=== PATIENT | female | born 1955 | race Caucasian/White ===

== ENCOUNTER 2020-03-05 13:44 | Emergency (ER) | payer MEDICARE, OTHER ==
[~2020-03-05] VITALS: Ht 177.8 cm; Wt 59.0 kg
--- NOTE | 2020-03-05 13:53 | Emergency Department Note ---
History of Present Illnes History of Present Illness History of Present Illness This is a 65 year old female that 2 days ago had a mechanical fall. Patient was walking, tripped and struck the right side of her ribs. No LOC, no headache, denies any pain right now. Patient has been ambulatory since then. Patient with moderate to severe pain, right ribs. . Arrival Mode: Car Onset (how long ago): day(s) (2) Location: R ribs Quality: ache Radiation: Reports non-radiation Severity: severe Onset quality: sudden Duration (how long): day(s) (2) Timing of current episode: constant Progression: worsening Chronicity: new Context: Denies recent illness, Denies recent surgery, Denies recent immobilization Relieving factors: none Exacerbating factors: movement Associated symptoms: Reports denies other symptoms Treatments prior to arrival: none Past Medical/Family History Physician Review I have reviewed the patient's past medical and family history. Any updates have been documented here. Review of Systems Review of Systems Constitutional: Reports no symptoms EENTM: Reports no symptoms Cardiovascular: Reports no symptoms Respiratory: Reports no symptoms Gastrointestinal: Reports no symptoms Genitourinary: Reports no symptoms Musculoskeletal: Reports no symptoms Integumentary: Reports no symptoms Neurological: Reports no symptoms Psychological: Reports no symptoms Endocrine: Reports no symptoms Hematological/Lymphatic: Reports no symptoms Physical Exam Related Data Allergies: Coded Allergies: Sulfa (Sulfonamide Antibiotics) (Verified Allergy, Mild, 03/05/20) Physical Exam CONSTITUTIONAL Constitutional: Present well-developed, Present well-nourished HENT HENT: Present normocephalic, Present atraumatic, Present oropharynx clear/moist, Present nose normal HENT L/R: Present left ext ear normal, Present right ext ear normal EYES Eyes: Reports PERRL, Reports conjunctivae normal NECK Neck: Present ROM normal PULMONARY Pulmonary: Present effort normal, Present breath sounds normal, Present chest tenderness (tenderness to palpation right lateral chest wall NO crepitus) CARDIOVASCULAR Cardiovascular: Present regular rhythm, Present heart sounds normal, Present capillary refill normal, Present normal rate GASTROINTESTINAL Abdominal: Present soft, Present nontender, Present bowel sounds normal GENITOURINARY Genitourinary: Present exam deferred SKIN Skin: Present warm, Present dry MUSCULOSKELETAL Musculoskeletal: Present ROM normal NEUROLOGICAL Neurological: Present alert, Present oriented x 3, Present no gross motor or sensory deficits PSYCHOLOGICAL Psychological: Present mood/affect normal, Present judgement normal Assessment & Plan Medical Decision Making MDM Patient is a 65-year-old that suffered a mechanical fall 2 days ago here with right rib pain. Patient with pain worse with movement, no crepitus on exam. We will image and treat symptomatically in the meantime. Denies any chest pain, no shortness of breath. Patient is a COPD patient, sat 100% no respiratory distress. Reassessment Reassessment X-ray did not show any rib fractures, we'll treat as contusion, checked at [place] pharmacy website, no recent narcotics. Assessment & Plan Final Impression: (1) Fall (2) Contusion of rib on right side Depart Disposition: HOME, SELF-[facility] Meds Active Scripts Acetaminophen/Codeine* (TYLENOL # 3*) 1 Ea Tab, 1 TAB PO Q4H PRN for pain, #10 T AB Prov:TRICIA DE LA CRUZ MD 03/05/20 TRICIA DE LA CRUZ MD Mar 05, 2020 13:53
[2020-03-05] MEDS ORDERED: ACETAMINOPHEN/CODEINE 300MG - 30MG TAB PO ONE (15:00)
--- NOTE | 2020-03-05 15:43 | Diagnostic Imaging Report ---
X-ray right RIBS with AP chest History: Fall. Findings: No acute fracture, lytic or blastic lesions of the right ribs. Old healed fracture of the left posterior rib. Likely old healed fracture of the right surgical neck of the humerus. Status post left shoulder arthroplasty. Status post anterior C-spine fusion at lower cervical level. Lungs are unremarkable. Cardiomediastinal and diaphragmatic silhouettes unremarkable upper abdomen unremarkable. Incidental findings: Vascular calcification. Impression: No right rib fractures. No acute cardiopulmonary disease. Signed by: Brent Tesfaye MD on 03/05/2020 3:40 PM
--- OUTSIDE RECORDS SUMMARY | 2020-03-05 15:55 | XMS REPORT | Continuity of Care Document ---
Author Author [facility] t Organization [facility] Address [address] [place] [address] Phone Unavailable Care Team Providers Care Dust Box Tender Name Role Phone Cristal DE LA CRUZ Unavailable Tu Fonseca Problems This patient has no known problems. Allergies, Adverse Reactions, Alerts This patient has no known allergies or adverse reactions. Medications This patient has no known medications. Procedures This patient has no known procedures. Encounters Start Date/Time End Date/Time Encounter Type Admission Type [facility] Care Department Encounter ID Source 2019-10-05 12:17:59 2019-10-05 13:32:02 Office Visit Tu Hillman [facility] [id number] Results Test Description Test Time Test Comments Results Result Comments Source CYNDEE Mccullough/CXR 2020-03-05 15:37:00 [facility] KARYN LYLE : 1955 Sex: F [facility] [address] [address] Patient Name: KARYN LYLE MR #: [id number] : 1955 Age/Sex: 65/F Req #: [id number] Adm Physician: Ordered by: TRICIA DE LA CRUZ MD Report #: [id number] Location: ER Room/Bed: Procedure: [id number] DX/RIBS UNILAT W/CXR Exam Date: 03/05/20 Exam Time: 1425 REPORT STATUS: Signed X-ray right RIBS with AP chest History: Fall. Findings: No acute fracture, lytic or blastic lesions of the right ribs. Old healed fracture of the left posterior rib. Likely old healed fracture of the right surgical neck of the humerus. Status post left shoulder arthroplasty. Status post anterior C-spine fusion at lower cervical level. Lungs are unremarkable. Cardiomediastinal and diaphragmatic silhouettes unremarkable upper abdomen unremarkable. Incidental findings: Vascular calcification. Impression: No right rib fractures. No acute cardiopulmonary disease. Signed by: Pilar Krishnan MD on 03/05/2020 3:40 PM Dictated By: PILAR KRISHNAN MD 39 Transcribed By: YENNIFER on 03/05/201539 COPY TO: TRICIA DE LA CRUZ MD
[2020-03-05] MEDS ORDERED: KETOROLAC TROMETHAMINE 30 MG/ML VIAL IM STA (16:15)
[2020-03-05] MEDS ORDERED: TYLENOL # 31 EA PO (16:16)
[2020-03-05 16:50] VITALS: BP 134/79
== END 2020-03-05 16:32 | disposition home or self-care (01) ==
LOC: ER 13:50
DX: S20.211A Contusion of right front wall of thorax, initial encounter (principal); W01.0XXA Fall on same level from slipping, tripping and stumbling without subsequent striking against object, initial encounter; Y93.01 Activity, walking, marching and hiking
CPT/HCPCS: 71101; 99284; J1885